=== PATIENT | female | born 1945 | race Caucasian/White ===

== ENCOUNTER 2018-07-06 11:09 | Emergency (ER) | payer MEDICARE ==
[~2018-07-06] VITALS: Ht 162.6 cm; Wt 94.3 kg
[~2018-07-06 11:09] MED LIST: ASPI325T8 PO; DULO60CA6 PO; ENAL10TA PO; GLIM2TAB2 PO; Hydrocodone/Acetaminophen PO; INSU100I9 SQ; INSU100V11 IJ; LEVO125T5 PO; METF10007 PO; METF500T16 PO; MULT-658 PO; OMEP40CA5 PO; SIMV20TA3 PO
[2018-07-06 11:32] VITALS: BP 154/75
[2018-07-06] MEDS ORDERED: NEOMY/BACITR/POLYMYXIN OINT PACKET. TP ONE (11:45)
[2018-07-06] MEDS ORDERED: DIPHTH,PERTUSS(ACELL),TET TOX 0.5 ML DISP.SYRIN. VAX IM ONE (11:45)
--- NOTE | 2018-07-06 11:46 | RAD ---
EXAM: PA, oblique and lateral views left hand DATE: 07/06/2018 11:25 AM INDICATION: Laceration dorsal hand. Fall. Pain. COMPARISON: No Prior FINDINGS: Decreased bone mineral density. No evidence of acute fracture or dislocation. Dorsal soft tissue swelling overlying the MCP joints. No definite retained radiopaque foreign body. Scattered IP joint space narrowing with associated degenerative change. IMPRESSION: Soft tissue swelling overlying the dorsal MCP joints without evidence for retained foreign body, acute fracture or dislocation. Electronically signed by: Familia Weber MD (07/06/2018 11:43 AM) [id number]
--- NOTE | 2018-07-06 12:15 | PHYS DOC ---
Past Medical History Past Medical History: Cancer, CVA, Diabetes-Type II, GERD, High Cholesterol, Hypertension, Hypothyroid Additional Past Medical Histor: breast cancer Past Surgical History: Cholecystectomy Additional Past Surgical Histo: L. MASTECTOMY, lens replacement Alcohol Use: Rarely Drug Use: None Adult General Chief Complaint Chief Complaint: LACERATION/AVULSION HPI HPI Patient is a 72 year old female who presents with left hand laceration, patient states she was walking very fast into with her walker into the doctor's office w hen she tripped and fell. Patient denies any loss of consciousness, denies hitting her head on the ground, she states she takes aspirin 325 mg every day. Denies any head, neck pain or back pain. Review of Systems Review of Systems Constitutional: Denies fever or chills [] Eyes: Denies change in visual acuity, redness, or eye pain [] HENT: Denies nasal congestion or sore throat [] Respiratory: Denies cough or shortness of breath [] Cardiovascular: No additional information not addressed in HPI [] GI: Denies abdominal pain, nausea, vomiting, bloody stools or diarrhea [] : Denies dysuria or hematuria [] Musculoskeletal: Denies back pain or joint pain [] Integument: Reports left hand laceration Neurologic: Denies headache, focal weakness or sensory changes [] All other systems were reviewed and found to be within normal limits, except as documented in this note. Current Medications Current Medications Current Medications Medications (Trade) Dose Ordered Sig/Nataliya Start Time Stop Time Status Last Admin Dose Admin Diphtheria/ Tetanus/Acell Pertussis (Boostrix) 0.5 ml ONCE ONCE 07/06/18 11:45 07/06/18 11:46 DC Neomycin/ Polymyxin/ Bacitracin (Triple Antibiotic Ointment) 1 pkt 1X ONCE 07/06/18 11:45 07/06/18 11:46 DC Allergies Allergies Allergies Coded Allergies Type Severity Reaction Last Updated Verified gluten Allergy Intermediate 02/08/15 Yes Physical Exam Physical Exam Constitutional: Well developed, well nourished, no acute distress, non-toxic appearance. [] HENT: Normocephalic, atraumatic, bilateral external ears normal, oropharynx moist, no oral exudates, nose normal. [] Eyes: PERRLA, EOMI, conjunctiva normal, no discharge. [] Neck: Normal range of motion, no tenderness, supple, no stridor. [] Cardiovascular:Heart rate regular rhythm, no murmur [] Lungs & Thorax: Bilateral breath sounds clear to auscultation [] Abdomen: Bowel sounds normal, soft, no tenderness, no masses, no pulsatile masses. [] Skin: Left dorsal hand with mild soft tissue swelling along the index finger, middle finger as well as ring finger knuckles. There is a superficial skin tear approximately 4 x 1 cm over the area. There is also another skin tear approximately 0.5 cm x 0.3 cm on the left forearm. Neurovascular exam of the left hand is intact including adequate radial, medial, ulnar sensation to the left hand. +2 left radial pulse. Cap refill less than 2 seconds the left fingers Back: No tenderness, no CVA tenderness. [] Extremities: No tenderness, no cyanosis, no clubbing, ROM intact, no edema. [] Neurologic: Alert and oriented X 3, normal motor function, normal sensory function, no focal deficits noted. [] Psychologic: Affect normal, judgement normal, mood normal. Cranial nerves II through XII intact Current Patient Data Vital Signs Vital Signs Date Time Temp Pulse Resp B/P (MAP) Pulse Ox O2 Delivery O2 Flow Rate FiO2 07/06/18 11:32 98.1 104 16 154/75 (101) 98 Room Air 98.1 EKG EKG [] Radiology/Procedures Radiology/Procedures []REASON: fall this am, laceration to dorsal surface of left hand PROCEDURE: HAND LEFT 3V EXAM: PA, oblique and lateral views left hand DATE: 07/06/2018 11:25 AM INDICATION: Laceration dorsal hand. Fall. Pain. COMPARISON: No Prior FINDINGS: Decreased bone mineral density. No evidence of acute fracture or dislocation. Dorsal soft tissue swelling overlying the MCP joints. No definite retained radiopaque foreign body. Scattered IP joint space narrowing with associated degenerative change. IMPRESSION: Soft tissue swelling overlying the dorsal MCP joints without evidence for retained foreign body, acute fracture or dislocation. Electronically signed by: Familia Weber MD (07/06/2018 11:43 AM) [id number] DICTATED and SIGNED BY: FAMILIA WEBER MD DATE: 07/06/18 1143 Course & Med Decision Making Course & Med Decision Making Pertinent Labs and Imaging studies reviewed. (See chart for details) This is a 72-year-old female patient presenting to the ED today with left hand lacerations after falling. Left hand x-rays interpreted by radiologist are negative for any acute findings. Tetanus updated. Lacerations were cleaned and covered with nonstick dressing. Neosporin also applied to the area before dressing application, patient was discharged to home. Ice elevation encouraged. Follow-up with primary care doctor in 1-2 weeks. Dragon Disclaimer Dragon Disclaimer This electronic medical record was generated, in whole or in part, using a voice recognition dictation system. Departure Departure Impression: Primary Impression: Laceration of left hand Additional Impressions: Laceration of left forearm Fall from standing Contusion of left hand Disposition: HOME, SELF-CARE Condition: STABLE Referrals: SANDRA BENNETT (PCP) Follow-up in 1-2 weeks Patient Instructions: Contusion, [id number], Fall Prevention and Home Safety, Laceration Care, Adult Additional Instructions: You were evaluated in the emergency room, your left hand x-rays are negative for any acute findings, try to ice elevate the areas. Apply Neosporin to the area stress today. Monitor the area for any signs of infection including but not limited to increased redness, warmth, yellow drainage from the area and return to the area. Follow-up with your doctor in one week. Problem Qualifiers Primary Impression: Laceration of left hand Encounter type: initial encounter Foreign body presence: without foreign body Qualified Codes: S61.412A - Laceration without foreign body of left hand, initial encounter Additional Impressions: Laceration of left forearm Encounter type: initial encounter Qualified Codes: S51.812A - Laceration without foreign body of left forearm, initial encounter Fall from standing Encounter type: initial encounter Qualified Codes: W19.XXXA - Unspecified fall, initial encounter Contusion of left hand Encounter type: initial encounter Qualified Codes: S60.222A - Contusion of left hand, initial encounter ALISON BAUM [employer]IST July 06, 2018 12:15
== END 2018-07-06 12:21 | disposition home or self-care (01) ==
LOC: ER 11:09
DX: S61.412A Laceration without foreign body of left hand, initial encounter (principal); S51.812A Laceration without foreign body of left forearm, initial encounter; E11.9 Type 2 diabetes mellitus without complications; K21.9 Gastro-esophageal reflux disease without esophagitis; E78.00 Pure hypercholesterolemia, unspecified; I10 Essential (primary) hypertension; E03.9 Hypothyroidism, unspecified; Z86.73 Personal history of transient ischemic attack (TIA), and cerebral infarction without residual deficits; Z88.8 Allergy status to other drugs, medicaments and biological substances; W01.0XXA Fall on same level from slipping, tripping and stumbling without subsequent striking against object, initial encounter; Y93.01 Activity, walking, marching and hiking; Y92.89 Other specified places as the place of occurrence of the external cause; Y99.8 Other external cause status
CPT/HCPCS: 73130; 90471; 90715; 99284